=== PATIENT | male | born 1985 | race Caucasian/White ===

== ENCOUNTER → 2016-12-10 | Outpatient (REF) ==
[~2016-12-10] MED LIST: AMOXICILLIN 50500 MG PO
== END ==
LOC: WSOH 09:45
DX: Z02.89 Encounter for other administrative examinations (principal)

== ENCOUNTER 2017-06-19 11:28 | Outpatient (RCR) | payer OTHER ==
[2017-06-19] MEDS ORDERED: AMOXICILLIN 50500 MG PO (13:59)
== END 2017-08-04 08:00 ==
LOC: WSOH 11:28
DX: S01.511A Laceration without foreign body of lip, initial encounter (principal); W31.1XXA Contact with metalworking machines, initial encounter; Y99.0 Civilian activity done for income or pay

== ENCOUNTER 2017-06-19 12:24 | Emergency (ER) | payer OTHER ==
[~2017-06-19] VITALS: Ht 175.3 cm; Wt 79.5 kg
[2017-06-19 12:26] VITALS: BP 134/85; PULSE 85; TEMP 99.2
[2017-06-19] MEDS ORDERED: AMOXICILLIN 50500 MG PO (13:59)
== END 2017-06-19 14:13 | disposition home or self-care (01) ==
LOC: COL.ER 12:24
DX: S01.511A Laceration without foreign body of lip, initial encounter (principal); Z23 Encounter for immunization; W20.8XXA Other cause of strike by thrown, projected or falling object, initial encounter; Y92.69 Other specified industrial and construction area as the place of occurrence of the external cause

== ENCOUNTER → 2017-06-19 | Outpatient (REF) | LOC: WSOH 12:03 | DX: Z02.89 Encounter for other administrative examinations (principal) ==

== ENCOUNTER 2022-06-27 13:54 | Emergency (ER) | payer OTHER ==
[~2022-06-27] VITALS: Ht 167.6 cm; Wt 86.4 kg
[2022-06-27 14:15] VITALS: TEMP 97
[2022-06-27] MEDS ORDERED: CEPHALEXIN500 M1 PO (14:53)
[2022-06-27 15:17] VITALS: BP 137/96; PULSE 79
== END 2022-06-27 15:18 | disposition home or self-care (01) ==
LOC: COL.ER 13:54
DX: S61.411A Laceration without foreign body of right hand, initial encounter (principal); Z23 Encounter for immunization; W22.8XXA Striking against or struck by other objects, initial encounter; Y92.59 Other trade areas as the place of occurrence of the external cause; Y99.0 Civilian activity done for income or pay